=== PATIENT | male | born 1995 | race African-American/Black ===

== ENCOUNTER 2017-01-30 09:41 | Emergency (ER) | payer MEDICAID, OTHER ==
[2017-01-30] MEDS ORDERED: KETOROLAC 60 MG/2 ML VIAL IM STA (10:46)
[2017-01-30] MEDS ORDERED: DEXAMETHASONE 10 MG/ML VIAL PO STA (10:46)
[2017-01-30] MEDS ORDERED: CHERRY SYRUP 10 ML UDC PO ONE (10:54)
[2017-01-30] MEDS ORDERED: KETOROLAC 60 MG/2 ML VIAL ONE (10:54)
[2017-01-30] MEDS ORDERED: DEXAMETHASONE 10 MG/ML VIAL ONE (10:54)
== END 2017-01-30 12:00 | disposition home or self-care (01) ==
DX: J03.90 Acute tonsillitis, unspecified (principal)
CPT/HCPCS: 87070; 87430; 96372; 99283; A9270